=== PATIENT | male | born 1965 | race Caucasian/White ===

== ENCOUNTER 2017-05-25 15:24 | Emergency (ER) | payer OTHER ==
[~2017-05-25] VITALS: Ht 175.3 cm; Wt 79.0 kg
[2017-05-25] MEDS ORDERED: STEROIDS PO (15:33)
[2017-05-25 17:31] VITALS: BP 111/68
== END 2017-05-25 17:51 | disposition left against medical advice (07) ==
LOC: EMS 15:28
DX: F10.129 Alcohol abuse with intoxication, unspecified (principal); R06.02 Shortness of breath; F17.210 Nicotine dependence, cigarettes, uncomplicated
CPT/HCPCS: 99283